=== PATIENT | male | born 1995 | race Caucasian/White ===

== ENCOUNTER 2017-04-26 17:01 | Emergency (ER) | payer BC ==
[~2017-04-26] VITALS: Ht 182.9 cm; Wt 117.9 kg
[~2017-04-26 17:01] MED LIST: BENTYL 20 MG TA20 M1; BUSPIRONE HCL10 MG; PROAIR HFA8.5 GM INH; VISTARIL 25 MG25 M1
[2017-04-26 17:46] LABS: ABSOLUTE EOSINOPHILS 0.4 thou/uL (0.0-0.7); ABSOLUTE LYMPHOCYTES 1.9 thou/uL (0.8-5.3); ABSOLUTE MONOCYTES 0.6 thou/uL (0.0-1.2); ABSOLUTE NEUTROPHILS 4.4 thou/uL (1.6-8.1); BASOPHILS 0.1 %; EOSINOPHILS 5.8 %; HEMATOCRIT 45.5 % (42.0-52.0); HEMOGLOBIN 15.4 gm/dL (14.0-18.0); LYMPHOCYTES 26.1 %; MCH 29.4 pg (26.0-34.0); MCHC 33.8 g/dL (28.0-37.0); MCV 86.9 fL (80.0-100.0); MONOCYTES 8.3 %; MPV 8.6 fl. (7.2-11.1); NUCLEATED RBCS 0 /100WBC; PLATELET COUNT* 308 thou/uL (150-400); POLYS 59.7 %; RBC 5.24 mil/uL (4.50-6.00); RDW-CV 12.4 % (10.5-14.5); WBC 7.3 thou/uL (4.0-11.0)
[2017-04-26 17:57] LABS: CREATININE 0.9 mg/dL (0.6-1.3); POTASSIUM 3.7 mmol/L (3.5-5.1)
[2017-04-26 17:59] LABS: APTT 29.4 Seconds (25.0-31.3); PROTIME 10.1 Seconds (9.20-11.50)
[2017-04-26 18:01] LABS: ALBUMIN 3.8 g/dL (3.4-5.0); TOTAL BILIRUBIN 0.4 mg/dL (<0.1-1.0); TOTAL PROTEIN 7.4 g/dL (6.4-8.2)
[2017-04-26] MEDS ORDERED: DELTASONE20 MG PO (18:57)
[2017-04-26] MEDS ORDERED: ASACOL HD800 MG PO (18:57)
[2017-04-26] MEDS ORDERED: CARAFATE1 GM/10 ML PO (18:59)
[2017-04-26 19:11] VITALS: BP 132/81
== END 2017-04-26 19:12 | disposition home or self-care (01) ==
LOC: M.ERS 17:01
PROVIDERS: Nurse Practitioner Family
DX: K50.90 Crohn's disease, unspecified, without complications (principal); K59.9 Functional intestinal disorder, unspecified; Z87.19 Personal history of other diseases of the digestive system

== ENCOUNTER 2018-04-13 14:14 | Emergency (ER) | payer OTHER, MEDICAID ==
[~2018-04-13] VITALS: Ht 182.9 cm; Wt 122.5 kg
[~2018-04-13 14:14] MED LIST changes: +ASACOL HD800 MG PO; +CARAFATE1 GM/10 ML PO; +DELTASONE20 MG PO
[2018-04-13] MEDS ORDERED: AMITRIPTYLINE H75 M1 PO (14:32)
[2018-04-13] MEDS ORDERED: TRAZODONE HCL50 MG PO (14:32)
[2018-04-13] MEDS ORDERED: PROTONIX 20 MG20 M1 PO (14:33)
[2018-04-13] MEDS ORDERED: ACETAMINOPHEN-1 EAC1 PO (17:24)
[2018-04-13] MEDS ORDERED: NAPROSYN500 MG PO (17:24)
[2018-04-13] MEDS ORDERED: ONDANSETRON HCL4 M2 PO (17:24)
[2018-04-13 18:10] VITALS: BP 132/67
== END 2018-04-13 18:10 | disposition home or self-care (01) ==
LOC: M.ERS 14:14
DX: S06.0X0A Concussion without loss of consciousness, initial encounter (principal); M54.5 Low back pain; M25.551 Pain in right hip; V49.49XA Driver injured in collision with other motor vehicles in traffic accident, initial encounter; Y93.89 Activity, other specified; Y92.89 Other specified places as the place of occurrence of the external cause; Y99.8 Other external cause status